=== PATIENT | male | born 1945 | race Caucasian/White ===

== ENCOUNTER 2020-05-11 00:47 | Emergency (ER) | payer MEDICARE, OTHER ==
[~2020-05-11] VITALS: Ht 182.9 cm; Wt 90.7 kg
[~2020-05-11 00:47] MED LIST: CARV25TA55 PO; GLYB1POW; INSUINJ32 SC; LEVE1TAB46 PO; LISIPOW; METFORMIN; NIFE1TAB31 PO; NOVOLOG FLEX PEN SC; PLAVIX; SIMV-8 PO; WARF1TAB36 PO; WARF6TAB21 PO
[2020-05-11 05:52] VITALS: BP 115/68
[2020-05-11] MEDS ORDERED: HYDROcodone-ACET 10/325MG TAB PO ONE (06:00)
== END 2020-05-11 05:12 | disposition home or self-care (01) ==
LOC: ER 00:47 → EDBD 00:47 → ER 05:12
DX: S76.012A Strain of muscle, fascia and tendon of left hip, initial encounter (principal); E11.9 Type 2 diabetes mellitus without complications; E78.5 Hyperlipidemia, unspecified; I10 Essential (primary) hypertension; Z86.73 Personal history of transient ischemic attack (TIA), and cerebral infarction without residual deficits; W18.09XA Striking against other object with subsequent fall, initial encounter; Y93.89 Activity, other specified; Y92.89 Other specified places as the place of occurrence of the external cause; Y99.8 Other external cause status
CPT/HCPCS: 70450; 73502; 73560